=== PATIENT | male | born 1985 | race Caucasian/White ===

== ENCOUNTER 2020-01-07 04:50 | Observation (INO) | payer OTHER ==
[2020-01-07] MEDS ORDERED: ONDANSETRON 4 MG/2 ML VIAL ONE (05:29)
[2020-01-07] MEDS ORDERED: NA CHLORIDE 0.9% 1,000 ML ONE ×2 (05:29→06:17)
[2020-01-07] MEDS ORDERED: FAMOTIDINE 20 MG/2 ML VIAL IV ONE (05:29)
[2020-01-07] MEDS ORDERED: MORPHINE 4 MG/ML SYR ONE (05:30)
[2020-01-07 05:37] LABS: Absolute Lymphocytes (CBC) 2.4 K/uL (0.7-4.9); Basophils % 0.3 % (0-1.3); Hematocrit 59.1 % (39.6-49.0); Lymphocytes % 7.7 % (15.3-44.8); MPV 8.7 fL (7.6-11.3); RBC Red Blood Cell Count 6.63 M/uL (4.33-5.43)
[2020-01-07 06:01] LABS: Phosphorus 8.3 mg/dL (2.5-4.9)
[2020-01-07 06:25] LABS: ALT/SGPT 70 U/L (12-78); AST/SGOT 52 U/L (15-37); Alkaline Phosphatase 146 U/L (45-117); BUN Blood Urea Nitrogen 36 mg/dL (7-18); Bicarbonate 23 mmol/L (21-32); Bilirubin Direct 0.2 mg/dL (0-0.2); Bilirubin Total 0.7 mg/dL (0.2-1.0); Creatine Phosphokinase 634 U/L (39-308); Glucose Level 238 mg/dL (74-106); Lipase 75 U/L (73-393); Protein, Total 12.9 g/dL (6.4-8.2); Sodium Level 133 mmol/L (136-145); Troponin (Emerg Dept Use Only) < 0.02 ng/mL (0.0-0.045)
[2020-01-07 06:29] LABS: Albumin 6.9 g/dL (3.4-5.0)
[2020-01-07] MEDS ORDERED: PIPER/TAZO/NS 3.375gm 3.375 GM/100 ML BAG ONE (06:45)
[2020-01-07 07:42] LABS: Protime INR 1.13
[2020-01-07 08:39] LABS: Urine Blood 2+ (NEG); Urine Glucose NEGATIVE (NEG); Urine Protein 3+ (NEG); Urine Specific Gravity >1.030 (1.005-1.030); Urine pH 5.5 (5.0-7.0)
--- NOTE | 2020-01-07 08:44 | RAD REPORT ---
EXAM DESCRIPTION: CT - Abdomen Pelvis Wo Contrast - 01/07/2020 6:51 am CLINICAL HISTORY: Abdominal pain. ABD PAIN COMPARISON: No comparisons TECHNIQUE: CT imaging of the abdomen and pelvis was performed without contrast. Solid organ, bowel a nd vascular assessment is limited due to lack of IV and oral contrast. All CT scans are performed using dose optimization technique as appropriate and may include automated exposure control or mA/KV adjustment according to patient size. FINDINGS: The lower lung narayanan are clear. The liver, spleen, pancreas, adrenal glands and kidneys are within normal limits for a limited non-co ntrast examination. No bowel obstruction, free air, free fluid or abscess. The appendix is normal. The osseous structures are within normal limits. IMPRESSION: No acute intra-abdominal or pelvic findings. A limited non-contrast examination was performed as detailed.
[2020-01-07 08:48] LABS: Barbiturates NEGATIVE (NEGATIVE); Benzodiazepines NEGATIVE (NEGATIVE); Cocaine NEGATIVE (NEGATIVE); METHAMPHETAM NEGATIVE (NEGATIVE); Methadone NEGATIVE (NEGATIVE); Opiates POSITIVE (NEGATIVE); Phencyclidine NEGATIVE (NEGATIVE); THC Cannibis NEGATIVE (NEGATIVE)
--- NOTE | 2020-01-07 09:00 | EDPHYS ---
Physician Documentation [facility] Name: Artem Robertson Jr Age: 34 yrs Sex: Male : 1985 Arrival Date: 01/07/2020 Time: 04:51 Bed 8 Private MD: ED Physician Wallace Bullock HPI: 01/06 05:43 This 34 yrs old Male presents to ER via Wheelchair with complaints of mh7 Abdominal Cramping, Vomiting. 05:43 The patient presents with abdominal pain that is diffuse. Onset: The symptoms/episode mh7 began/occurred 2 day(s) ago. The symptoms do not radiate. Associated signs and symptoms: Pertinent positives: nausea and vomiting, anorexia, Pertinent negatives: blood in stools, chest pain, constipation, diarrhea, dysuria, fever, headache, hematuria, palpitations, shortness of breath, testicular pain, vomiting blood. The symptoms are described as intermittent, vague, waxing/waning. Modifying factors: The symptoms are alleviated by nothing, the symptoms are aggravated by nothing. Severity of pain: At its worst the pain was moderate last night, in the emergency department the pain is unchanged. Historical: - Allergies: 05:02 No Known Allergies; lp1 - Home Meds: 05:02 None [Active]; lp1 - PMHx: 05:02 None; lp1 - PSHx: 05:02 None; lp1 - Immunization history:: Adult Immunizations up to date. - Social history:: Smoking status: Patient reports the use of cigarette tobacco products, smokes one pack cigarettes per day. ROS: 05:43 Constitutional: Negative for fever, chills, and weight loss, Eyes: Negative for injury, mh7 pain, redness, and discharge, ENT: Negative for injury, pain, and discharge, Neck: Negative for injury, pain, and swelling, Cardiovascular: Negative for chest pain, palpitations, and edema, Respiratory: Negative for shortness of breath, cough, wheezing, and pleuritic chest pain, Back: Negative for injury and pain, : Negative for injury, bleeding, discharge, and swelling, MS/Extremity: Negative for injury and deformity, Skin: Negative for injury, rash, and discoloration, Neuro: Negative for headache, weakness, numbness, tingling, and seizure, Psych: Negative for depression, anxiety, suicide ideation, homicidal ideation, and hallucinations, Allergy/Immunology: Negative for hives, rash, and allergies, Endocrine: Negative for neck swelling, polydipsia, polyuria, polyphagia, and marked weight changes, Hematologic/Lymphatic: Negative for swollen nodes, abnormal bleeding, and unusual bruising. Exam: 05:43 Head/Face: Normocephalic, atraumatic. Eyes: Pupils equal round and reactive to light, mh7 extra-ocular motions intact. Lids and lashes normal. Conjunctiva and sclera are non-icteric and not injected. Cornea within normal limits. Periorbital areas with no swelling, redness, or edema. Neck: Trachea midline, no thyromegaly or masses palpated, and no cervical lymphadenopathy. Supple, full range of motion without nuchal rigidity, or vertebral point tenderness. No Meningismus. Chest/axilla: Normal chest wall appearance and motion. Nontender with no deformity. No lesions are appreciated. 05:43 Respiratory: Lungs have equal breath sounds bilaterally, clear to auscultation and percussion. No rales, rhonchi or wheezes noted. No increased work of breathing, no retractions or nasal flaring. 05:43 Back: No spinal tenderness. No costovertebral tenderness. Full range of motion. Skin: Warm, dry with normal turgor. Normal color with no rashes, no lesions, and no evidence of cellulitis. MS/ Extremity: Pulses equal, no cyanosis. Neurovascular intact. Full, normal range of motion. Neuro: Awake and alert, GCS 15, oriented to person, place, time, and situation. Cranial nerves II-XII grossly intact. Motor strength 5/5 in all extremities. Sensory grossly intact. Cerebellar exam normal. Normal gait. Psych: Awake, alert, with orientation to person, place and time. Behavior, mood, and affect are within normal limits. 05:43 Constitutional: The patient appears alert, awake, frail, uncomfortable. 05:43 Cardiovascular: Rate: tachycardic, Rhythm: regular, Pulses: no pulse deficits are appreciated, Heart sounds: normal, normal S1and S2, Edema: is not appreciated, JVD: is not appreciated. 05:43 Abdomen/GI: Inspection: abdomen appears normal, Bowel sounds: normal, in all quadrants, Palpation: moderate abdominal tenderness, in all quadrants, Rectal exam: the exam is deferred, because of patient request, Indicators: McBurney's point is not tender, Gamez's sign is negative, Rovsing's sign is negative, Obturator sign is negative, Psoas sign is negative, Liver: no appreciated palpable abnormalities, Hernia: not appreciated. Vital Signs: 05:00 BP 135 / 89; Pulse 137; Resp 20; Pulse Ox 97% on R/A; Weight 71.21 kg (R); Height 6 ft. lp1 1 in. (185.42 cm); 05:46 BP 126 / 70; Pulse 78; Resp 19; Temp 99.9(R); Pulse Ox 100% on R/A; Pain 2/10; jb4 06:00 BP 118 / 93; Pulse 88; Resp 20; Pulse Ox 95% on R/A; jb4 07:31 BP 120 / 86; Pulse 88; Resp 16; Pulse Ox 95% on R/A; em 08:38 BP 124 / 86; Pulse 86; Resp 16; Pulse Ox 97% on R/A; em 09:00 Temp 97.8(O); em 09:43 BP 120 / 83; Pulse 93; Resp 17; Pulse Ox 98% ; jl7 10:30 BP 120 / 82; Pulse 76; Resp 16; Pulse Ox 96% ; jl7 11:21 BP 122 / 89; Pulse 85; Resp 17; Pulse Ox 96% ; jl7 05:00 Body Mass Index 20.71 (71.21 kg, 185.42 cm) lp1 MDM: 05:16 Patient medically screened. 7 09:01 Data reviewed: vital signs, nurses notes, lab test result(s), radiologic studies. kdr Counseling: I had a detailed discussion with the patient and/or guardian regarding: the historical points, exam findings, and any diagnostic results supporting the discharge/admit diagnosis, lab results, radiology results, the need for further work-up and treatment in the hospital. Physician consultation: Nicolas Escalera DO. 01/06 05:18 Order name: Basic Metabolic Panel; Complete Time: 06:30 7 01/06 05:18 Order name: CBC with Diff; Complete Time: 10:45 7 01/06 05:18 Order name: Hepatic Function; Complete Time: 06:30 7 01/06 05:18 Order name: Lipase; Complete Time: 06:30 7 01/06 05:18 Order name: Troponin (emerg Dept Use Only); Complete Time: 06:30 7 01/06 05:18 Order name: CPK; Complete Time: 06:30 7 01/06 05:18 Order name: Lactate; Complete Time: 06:07 7 01/06 05:18 Order name: UDS; Complete Time: 08:56 7 01/06 05:19 Order name: Acetone, Serum; Complete Time: 06:02 7 01/06 05:19 Order name: Phosphorus; Complete Time: 06:02 7 01/06 05:21 Order name: Glucose, Ancillary Testing; Complete Time: 05:47 EDMS 01/06 06:22 Order name: Procalcitonin; Complete Time: 07:21 7 01/06 06:25 Order name: PT-INR; Complete Time: 07:47 7 01/06 06:36 Order name: Blood Culture Adult (2) 7 01/06 05:18 Order name: IV Saline Lock; Complete Time: 05:40 7 01/06 06:32 Order name: Abdomen ; Complete Time: 08:46 EDMS 01/06 08:19 Order name: EKG Electrocardiogram EDMS 01/06 08:28 Order name: Urine Dipstick--Ancillary (enter results); Complete Time: 08:46 em1 01/06 09:06 Order name: Lactate Sepsis 2 HR Follow-up; Complete Time: 10:45 EDMS 01/06 09:16 Order name: Manual Differential; Complete Time: 10:45 EDMS 01/06 11:40 Order name: ABG Arterial Blood Gas EDMS 01/06 11:43 Order name: RAD EDMS 01/06 05:18 Order name: Labs collected and sent; Complete Time: 05:40 7 01/06 05:18 Order name: Urine Dipstick-Ancillary (obtain specimen); Complete Time: 08:27 7 01/06 05:18 Order name: EKG - Nurse/Tech; Complete Time: 05:40 mh7 Administered Medications: 05:24 Drug: Zofran (Ondansetron) 4 mg Route: IVP; Site: right antecubital; rr5 05:50 Follow up: Response: No adverse reaction; Nausea is decreased jb4 05:25 Drug: NS 0.9% 1000 ml Route: IV; Rate: 1000 ml; Site: right antecubital; rr5 06:10 Follow up: Response: No adverse reaction; IV Status: Completed infusion; IV Intake: jb4 1000ml 05:26 Drug: Pepcid 20 mg Route: IVP; Site: right antecubital; rr5 05:50 Follow up: Response: No adverse reaction jb4 05:28 Drug: morphine 4 mg {Note: rass 0.} Route: IVP; Site: right antecubital; rr5 05:50 Follow up: Response: No adverse reaction; Pain is decreased; RASS: Alert and Calm (0) jb4 06:13 Drug: NS 0.9% 1000 ml Route: IV; Rate: 1000 ml; Site: right antecubital; jb4 07:32 Follow up: IV Status: Completed infusion; IV Intake: 1000ml em 06:50 Drug: Zosyn 3.375 grams Route: IVPB; Infused Over: 60 mins; Site: right antecubital; jb4 08:00 Follow up: Response: No adverse reaction; IV Status: Completed infusion jl7 09:04 Drug: NS 0.9% 1000 ml Route: IV; Rate: 200 ml/hr; Site: right antecubital; em 11:53 Follow up: Response: No adverse reaction; IV Status: Infusion continued upon admission jl7 Disposition: 01/07/20 08:59 Hospitalization ordered by Nicolas Escalera for Observation. Preliminary diagnosis are Dehydration, Acute Renal Failure, Abdominal and pelvic pain, Rhabdomyolysis. - Bed requested for Telemetry/MedSurg (observation). - Status is Observation. jl7 - Condition is Fair. - Problem is new. - Symptoms have improved. Signatures: Dispatcher [employer] EDIN Wallace Bullock MD MD kdr Munoz, Edgar RN RN Rober Bowers em1 Paloma Burks RN RN lp1 Felton Sifuentes RN RN jb4 Della Roper RN RN jl7 Roger Crews RN RN rr5 Patrick Hirsch MD MD mh7 Corrections: (The following items were deleted from the chart) 06:32 05:48 Abdomen Pelvis W Con+CT.RAD.BRZ ordered. EDIN EDMS 10:51 08:59 Hospitalization Ordered by Nicolas Escalera DO for Observation. Preliminary em1 diagnosis is Dehydration; Acute Renal Failure; Abdominal and pelvic pain; Rhabdomyolysis. Bed requested for Telemetry/MedSurg (observation). Status is Observation. Condition is Fair. Problem is new. Symptoms have improved. kdr 11:53 10:51 01/07/2020 08:59 Hospitalization Ordered by Nicolas Escalera DO for Observation. jl7 Preliminary diagnosis is Dehydration; Acute Renal Failure; Abdominal and pelvic pain; Rhabdomyolysis. Bed requested for Telemetry/MedSurg (observation). Status is Observation. Condition is Fair. Problem is new. Symptoms have improved. em1
--- NOTE | 2020-01-07 09:00 | ER ---
Nurse's Notes [facility] Name: Artem Robertson Jr Age: 34 yrs Sex: Male : 1985 Arrival Date: 01/07/2020 Time: 04:51 Bed 8 Private MD: Diagnosis: Dehydration;Acute Renal Failure;Abdominal and pelvic pain;Rhabdomyolysis Presentation: 01/06 05:00 Chief complaint: Patient states: "I think I have heat exhaustion": patient states lp1 muscle cramping and vomiting that began yesterday; states feeling thirsty but cannot tolerate food or fluids. Coronavirus screen: Patient denies a cough. Patient denies shortness of breath or difficulty breathing. Patient denies measured and/or subjective temperature greater than 100.4F prior to today's visit. Patient denies travel on a cruise ship or to a country the [facility] currently lists as an affected area. Patient denies contact with known and/or suspected case of COVID-19. Ebola Screen: No symptoms or risks identified at this time. Initial Sepsis Screen: Does the patient meet any 2 criteria? No. Patient's initial sepsis screen is negative. Does the patient have a suspected source of infection? No. Patient's initial sepsis screen is negative. Risk Assessment: Do you want to hurt yourself or someone else? Patient reports no desire to harm self or others. Onset of symptoms was January 06, 2020. 05:00 Method Of Arrival: Wheelchair lp1 05:00 Acuity: RED 3 lp1 Historical: - Allergies: 05:02 No Known Allergies; lp1 - Home Meds: 05:02 None [Active]; lp1 - PMHx: 05:02 None; lp1 - PSHx: 05:02 None; lp1 - Immunization history:: Adult Immunizations up to date. - Social history:: Smoking status: Patient reports the use of cigarette tobacco products, smokes one pack cigarettes per day. Screenin:03 Abuse screen: Denies threats or abuse. Denies injuries from another. Nutritional lp1 screening: No deficits noted. Tuberculosis screening: No symptoms or risk factors identified. 09:43 Fall Risk IV access (20 points). Total Dumont Fall Scale indicates No Risk (0-24 pts). jl7 Assessment: 05:00 General: Appears in no apparent distress. uncomfortable, Behavior is calm, cooperative, jb4 appropriate for age. Pain: Complains of pain in abdomen Pain does not radiate. Pain currently is 10 out of 10 on a pain scale. Quality of pain is described as crampy, Pain began 1 day ago. Is continuous. Neuro: Level of Consciousness is awake, alert, obeys commands, Oriented to person, place, time, situation. Cardiovascular: Patient's skin is warm and dry. Respiratory: Airway is patent Respiratory effort is even, unlabored, Respiratory pattern is regular, symmetrical. GI: Abdomen is flat, Bowel sounds present X 4 quads. Abd is rigid X 4 quads. Reports lower abdominal pain, upper abdominal pain, diarrhea, nausea, vomiting. : No signs and/or symptoms were reported regarding the genitourinary system. EENT: No signs and/or symptoms were reported regarding the EENT system. Derm: Skin is intact, Skin is diaphoretic, Skin is pale, Skin temperature is cool. Musculoskeletal: Circulation, motion, and sensation intact. Range of motion: intact in all extremities. 05:46 Reassessment: Patient appears in no apparent distress at this time. Patient and/or jb4 family updated on plan of care and expected duration. Pain level reassessed. Patient is alert, oriented x 3, equal unlabored respirations, skin warm/dry/pink. PT reports has decreased to 2/10. 06:05 Reassessment: lactate of 7.3 omi from laboratory called, ED provider aware. rr5 06:26 Reassessment: Patient appears in no apparent distress at this time. Patient and/or jb4 family updated on plan of care and expected duration. Pain level reassessed. Patient is alert, oriented x 3, equal unlabored respirations, skin warm/dry/pink. 06:29 Reassessment: chloride 79 calcium 12.1 albumin 6.9 ethan from laboratory called. ED rr5 provider aware. 07:25 Reassessment: Patient appears in no apparent distress at this time. Patient and/or em family updated on plan of care and expected duration. Pain level reassessed. Patient is alert, oriented x 3, equal unlabored respirations, skin warm/dry/pink. sent add on coag's to lab. 08:00 Reassessment: Pt reports unable to void at this time, will attempt again after some jl7 time. 08:25 Reassessment: obtained UA, tea colored urine, voided 150 mL. em 08:30 Reassessment: repeat lactate sent to lab. em 09:30 Reassessment: Dr. Escalera at bedside. 7 Vital Signs: 05:00 BP 135 / 89; Pulse 137; Resp 20; Pulse Ox 97% on R/A; Weight 71.21 kg (R); Height 6 ft. lp1 1 in. (185.42 cm); 05:46 BP 126 / 70; Pulse 78; Resp 19; Temp 99.9(R); Pulse Ox 100% on R/A; Pain 2/10; jb4 06:00 BP 118 / 93; Pulse 88; Resp 20; Pulse Ox 95% on R/A; jb4 07:31 BP 120 / 86; Pulse 88; Resp 16; Pulse Ox 95% on R/A; em 08:38 BP 124 / 86; Pulse 86; Resp 16; Pulse Ox 97% on R/A; em 09:00 Temp 97.8(O); em 09:43 BP 120 / 83; Pulse 93; Resp 17; Pulse Ox 98% ; jl7 10:30 BP 120 / 82; Pulse 76; Resp 16; Pulse Ox 96% ; jl7 11:21 BP 122 / 89; Pulse 85; Resp 17; Pulse Ox 96% ; jl7 05:00 Body Mass Index 20.71 (71.21 kg, 185.42 cm) lp1 ED Course: 04:51 Patient arrived in ED. ds1 04:54 Felton Sifuentes RN is Primary Nurse. jb4 04:56 Patrick Hirsch MD is Attending Physician. 7 05:00 Initial lab(s) drawn, by or, sent to lab. Inserted saline lock: 18 gauge in right jb4 antecubital area, using aseptic technique. Blood collected. 05:02 Triage completed. lp1 05:02 Arm band placed on. lp1 05:46 Patient has correct armband on for positive identification. Placed in gown. Bed in low jb4 position. Call light in reach. Side rails up X 1. media monitor on. Pulse ox on. NIBP on. 06:16 Notified ED physician of a critical lab result(s). WBC 31.7. lp1 06:51 Abdomen In Process Unspecified. EDMS 07:06 Primary Nurse role handed off by Felton Sifuentes, RN rr5 07:06 Roger Crews, RN is Primary Nurse. rr5 07:09 Felton Sifuentes, RN is Primary Nurse. jb4 07:20 Attending Physician role handed off by Patrick Hirsch MD kdr 07:20 Wallace Bullock MD is Attending Physician. kdr 07:30 Balbir Coats, RN is Primary Nurse. em 08:57 Nicolas Escalera DO is Hospitalizing Provider. kdr 11:50 No provider procedures requiring assistance completed. jl7 11:53 Patient admitted, IV remains in place. intact, No redness/swelling at site. jl7 Administered Medications: 05:24 Drug: Zofran (Ondansetron) 4 mg Route: IVP; Site: right antecubital; rr5 05:50 Follow up: Response: No adverse reaction; Nausea is decreased jb4 05:25 Drug: NS 0.9% 1000 ml Route: IV; Rate: 1000 ml; Site: right antecubital; rr5 06:10 Follow up: Response: No adverse reaction; IV Status: Completed infusion; IV Intake: jb4 1000ml 05:26 Drug: Pepcid 20 mg Route: IVP; Site: right antecubital; rr5 05:50 Follow up: Response: No adverse reaction jb4 05:28 Drug: morphine 4 mg {Note: rass 0.} Route: IVP; Site: right antecubital; rr5 05:50 Follow up: Response: No adverse reaction; Pain is decreased; RASS: Alert and Calm (0) jb4 06:13 Drug: NS 0.9% 1000 ml Route: IV; Rate: 1000 ml; Site: right antecubital; jb4 07:32 Follow up: IV Status: Completed infusion; IV Intake: 1000ml em 06:50 Drug: Zosyn 3.375 grams Route: IVPB; Infused Over: 60 mins; Site: right antecubital; jb4 08:00 Follow up: Response: No adverse reaction; IV Status: Completed infusion jl7 09:04 Drug: NS 0.9% 1000 ml Route: IV; Rate: 200 ml/hr; Site: right antecubital; em 11:53 Follow up: Response: No adverse reaction; IV Status: Infusion continued upon admission jl7 Intake: 06:10 IV: 1000ml; Total: 1000ml. jb4 07:32 IV: 1000ml; Total: 2000ml. em Outcome: 08:59 Decision to Hospitalize by Provider. kdr 11:50 Admitted to Tele accompanied by tech, via stretcher, room 228, with chart, Report jl7 called to VAN Sue 11:50 Condition: stable 11:50 Discharge instructions given to patient, Instructed on the need for admit, Demonstrated understanding of instructions. 11:53 Patient left the ED. jl7 Signatures: Dispatcher [employer] EDWallace Jefferson MD MD kdr Balbir Coats, RN RN em Angela Cooley ds1 Paloma Burks RN RN lp1 Felton Sifuentes, RN RN jb4 Della Roper RN RN jl7 Roger Crews, RN RN rr5 Patrick Hirsch MD MD 7
[2020-01-07] MEDS ORDERED: NA CHLORIDE 0.9% 2,000 ML ONE (09:08)
[2020-01-07 09:16] LABS: Blood Morphology Comment NOT SEEN (NOT SEEN); Platelet Estimate ADEQ
[2020-01-07] MEDS ORDERED: NA CHLORIDE 0.9% 1,000 ML IV ONE (11:16)
[2020-01-07 11:37] LABS: Arterial Blood Carboxyhemoglob 1.4 % (0-1.5); Blood Gas Oxyhemoglobin 91.4 % (94-97); Blood O2 Saturation 93.5 % (92-98.5)
--- NOTE | 2020-01-07 11:42 | RAD REPORT ---
EXAM DESCRIPTION: RAD - Chest Single View - 01/07/2020 11:35 am CLINICAL HISTORY: COPD Chest pain. COMPARISON: No comparisons FINDINGS: Portable technique limits examination quality. The lungs are grossly clear. The heart is normal in size. No displaced fractures. IMPRESSION: No acute intrathoracic process suspected.
[2020-01-07] MEDS ORDERED: NA CHLORIDE 0.9% 1,000 ML IV SCH ×3 (12:00→12:15)
[2020-01-07] MEDS ORDERED: ONDANSETRON 4 MG/2 ML VIAL IV PRN (12:15)
[2020-01-07] MEDS ORDERED: ALBUTEROL INHALER 60 PUFF/8 GM IH PRN (12:15)
[2020-01-07] MEDS ORDERED: ACETAMINOPHEN 500 MG TAB PO PRN (12:15)
[2020-01-07] MEDS ORDERED: TRAMADOL 37.5mg/APAP 325mg PER TAB PO PRN (12:15)
[2020-01-07] MEDS ORDERED: HYDROCODONE/APAP 7.5/325 MG TAB PO PRN (12:15)
[2020-01-07] MEDS ORDERED: ALBUTEROL 2.5 MG/3 ML NEB SOL NEB PRN (12:34)
[2020-01-07 12:48] VITALS: BMI 20.7
[2020-01-07] MEDS: NICOTINE 21 MG/PAT TD SCH (12:57)
[2020-01-07] MEDS: NACHLORIDE 0.45% 1,000 ML with NA BICARB 8.4% 75 MEQ IV SCH ×2 (17:17)
--- NOTE | 2020-01-07 17:33 | P.HP ---
Certification for Inpatient Patient admitted to: Inpatient With expected LOS: >2 Midnights Patient will require the following post-hospital care: None Practitioner: I am a practitioner with admitting privileges, knowledge of patient current condition, hospital course, and medical plan of care. Services: Services provided to patient in accordance with Admission requirements found in Title 42 Section 412.3 of the Code of Federal Regulations Patient History Date of Service: 01/07/20 Primary Care Provider: none Reason for admission: Fatigue, poor output History of Present Illness: 34-year-old male presented to emergency room with abdominal cramping and fatigue. Over the last 2 days patient had been working outside in the heat. 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 He reported some chills Overnite. He reports poor urinary output since Sunday. He did report some nausea and dry heaves. He thought he has been drinking plenty of fluids during this time. In the ER patient was evaluated. Abnormal lab noted including white count 31.7. Hemoglobin 20. Platelet count 449. 4 bands noted. Sodium 133, potassium 4.0. BUN of 36, creatinine 4.98 with a GFR of 13. Pro calcitonin negative. Lactic acid was initially 7.3 but after fluid bolus 1.6. Calcium 12.1. AST 50 tube. ALT 70. Alk-phos 146. CPK 634. Troponin unremarkable. Patient given IV fluid bolus in the emergency room. Patient admitted for further evaluation. When I saw the patient in the ER, patient appeared severely dehydrated. Pain to the calves noted. Some contraction noted. Allergies No Known Allergies Allergy (Unverified 01/07/20 11:19) Home medications list reviewed: Yes Home Medications: NK [No Home Meds] 01/07/20 - Past Medical/Surgical History Has patient received pneumonia vaccine in the past: No Diabetic: Yes Past Medical History: Patient denies medical history -: Tobacco use -: Alcohol use Past Surgical History: Patient denies surgical history Psychosocial/ Personal History: Patient is originally from [place]. 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 - Family History Mother -: Cancer (Uterine cancer) - Social History Smoking Status: Current every day smoker Alcohol use: Yes CD- Drugs: No Caffeine use: No Place of Residence: Home Review of Systems General: Chills, Weakness, As per HPI Eyes: Unremarkable ENT: Unremarkable Respiratory: Unremarkable Cardiovascular: Unremarkable Gastrointestinal: Nausea, Unremarkable Genitourinary: As per HPI Musculoskeletal: Unremarkable Integumentary: Unremarkable Neurological: Unremarkable Lymphatics: Unremarkable Physical Examination - Vital Signs Temperature: 100.7 F Blood Pressure: 112/74 Pulse: 91 Respirations: 20 Pulse Ox (%): 94 - Physical Exam General: Alert, In no apparent distress, Oriented x3, Cooperative, Cachectic, Other (Patient appears severely dehydrated.) HEENT: Atraumatic, Mucous membr. moist/pink Neck: Supple Respiratory: Clear to auscultation bilaterally, Normal air movement Cardiovascular: Normal pulses, Regular rate/rhythm Gastrointestinal: Normal bowel sounds, Soft and benign, Non-distended, No tenderness, No masses, No rebound, No guarding Musculoskeletal: No warmth Integumentary: Other (Muscles feel tense throughout. Pain with palpation to the calves) Neurological: Normal speech, Normal strength at 5/5 x4 extr, Normal tone, Normal affect Other Physical/Emotional Findings: Dry skin turgor noted - Studies Laboratory Data (last 24 hrs) 01/07/20 07:25: PT 13.3 H, INR 1.13 01/07/20 05:20: Phosphorus 8.3 H 01/07/20 05:20: WBC 31.7 H*, Hgb 20.0 H, Hct 59.1 H, Plt Count 449 H 01/07/20 05:20: Sodium 133 L, Potassium 4.0, BUN 36 H, Creatinine 4.98 H, Gluc ose 238 H, Total Bilirubin 0.7, AST 52 H, ALT 70, Alkaline Phosphatase 146 H, Lipase 75 Microbiology Data (last 24 hrs): 01/07/20 05:26 Blood - Blood Anaerobic Blood Culture - Final Assessment and Plan - Plan Impression: Acute rhabdomyolysis likely from severe dehydration with noted acute renal failure Hypercalcemia Leukocytosis with polycythemia Tobacco use Alcohol use Plan: Patient appears severely dehydrated. Patient given IV fluid bolus in the emergency room. Patient does not appear septic. Continue aggressive IV fluid hydration. Will provide medication for pain. Will continue to monitor CPK, renal function. Nephrology consulted to further evaluate. Anticipate improvement with fluid hydration. If symptoms worsen patient may require hemodialysis. Will continue monitor closely. Patient also with underlying tobacco and alcohol use. Will provide cessation education. Continue to monitor closely. Anticipate improvement over the next 72 hr. Discharge Plan: Home Plan to discharge in: 72 Hours - Advance Directives Does patient have a Living Will: No Does patient have a Durable POA for Healthcare: No - Code Status/Comfort Care Code Status Assessed: Yes (Patient is full code) Time Spent Managing Pts Care (In Minutes): 55
[2020-01-07 18:03] LABS: Rheumatoid Factor NEG (NEG)
[2020-01-07 20:23] LABS: Urine Appearance CLEAR; Urine Bilirubin NEGATIVE (NEG); Urine Blood 2+ (NEG); Urine Color YELLOW; Urine Glucose NEGATIVE (NEG); Urine Microscopic Reflex ORDER UMIC; Urine Protein 1+ (NEG); Urine Specific Gravity 1.025 (1.005-1.030); Urine Urobilinogen 0.2 mg/dL (0.2-1.0); Urine pH 5.5 (5.0-7.0)
--- NOTE | 2020-01-07 20:28 | RAD REPORT ---
EXAM DESCRIPTION: US - Renal Ultrasound-Complete - 01/07/2020 8:18 pm CLINICAL HISTORY: Acute renal failure, acute rhabdomyolysis COMPARISON: Abdomen Pelvis Wo Contrast dated 01/07/2020 FINDINGS: The right kidney measures 10.4 x 4.1 x 4.6 cm. The left kidney measures 11.2 x 5.0 x 4.6 cm. Renal cortical thickness and echogenicity are normal. No hydronephrosis or suspicious renal mass. No bladder wall thickening or mass. No intraluminal stone or mass. IMPRESSION: No hydronephrosis or suspicious renal mass. No other significant findings.
[2020-01-07 20:34] LABS: Urine Bacteria <20 /HPF (NONE SEEN); Urine Crystals Unidentified FEW (NONE SEEN); Urine Culture Reflex Order NOT NEEDED; Urine Mucus SLIGHT /HPF (NONE SEEN); Urine RBC NONE SEEN /HPF (NONE SEEN)
[2020-01-07] MEDS: DULERA 100/5 (MOMETASONE/FORMOTEROL) INHALER IH SCH (20:48)
[2020-01-07] MEDS: HEPARIN 5000 UNIT/ML 1 ML VIAL SQ SCH (20:50)
--- NOTE | 2020-01-07 20:59 | EKG ---
Test Date: 2020-01-07 Test Time: 05:30:06 Learning Manager: TLT MEASUREMENT RESULTS: Intervals: Rate: 98 MO: 118 QRSD: 94 QT: 406 QTc: 518 [place]: P: MO: 118 QRS: 101 T: 70 INTERPRETIVE STATEMENTS: Normal sinus rhythm Rightward axis Pulmonary disease pattern Prolonged QT Abnormal ECG No previous ECG available for comparison Electronically Signed On 01-07-20 20:57:00 CDT by Oleg Duffy
--- NOTE | 2020-01-07 21:52 | CON ---
Date of Consultation: 01/07/2020 Reason For Consultation: Elevated BUN and creatinine, rhabdomyolysis, fluid management. History Of Present Illness: This is a 34-year-old gentleman without any significant past medical his tory, came to the hospital complaining of weakness and fatigue, found to have elevated BUN and creati nine. For that reason, we have been consulted. The patient denied exposure for any contrast. No re cent change in his medication. Patient denied taking any xkgw-mrh-zxoldok medication. Primary ebonie p showed the patient had severe leukocytosis, 31 WBC, and patient had creatinine of 4 with GFR of 13. Patient had severe hypercalcemia. Past Medical History: Negative. Allergies: NO KNOWN DRUG ALLERGIES. Home Medications: None. Social History: Denied drug abuse, active smoker. Denied alcohol. Review of Systems: Head and Neck: No red eye. Had headache. GI: Has nausea. No vomiting. : Had anuria for the last 2 days. SCOW CAPTAIN: Not applicable. Respiratory: No shortness of breath. Cardiovascular: No chest pain. Endocrine: No polydipsia. Neuro: Has muscle cramps. Musculoskeletal: Has muscular cramps and generalized body ache. Physical Examination: GENERAL: When I saw the patient, patient was lying in bed, has a twitching movement in his mouth. VITAL SIGNS: Blood pressure 116/71, pulse of 82, T-max of 100.2. Chest: Clear to auscultation. Heart: S1-S2 regular. Abdomen: Soft, nontender. EXTREMITIES: No edema, but tender to touch. Neurologic: Alert, oriented, no focality. Again, patient has a twitching movement on his jaw. Pupi ls reactive, equal. Laboratory Data: Sodium 133, potassium 4, bicarb 23, BUN 36, creatinine 4.9, GFR of 13, blood sugar 238, calcium 12.1, phosphorus 8.3. Lactic acid 7.3. LFTs within normal limit. CK 634, albumin 6.9. ABG, pH of 7.4, CO2 34, O2 76, base access -6, saturation 91. Urinalysis +2 blood, +[address] silvestre screen positive for opiates. Assessment: Chest x-ray, no cardiomegaly. CT abdomen and pelvis was done without any contrast, obst ructive uropathy was ruled out. Assessment And Plan: 1.Acute kidney injury on chronic kidney disease. Oliguric component mostly secondary to prerenal, s econdary to rhabdomyolysis superimposed with severe dehydration supported with alkalosis and severe h ypercalcemia. 2.I am going to go ahead and aggressively hydrate the patient. We will bolus the patient with anoth er liter and maintain him on 150 of normal saline and we will follow up the patient. I am going to s end for full serology for the patient. We will send for renal ultrasound to evaluate the chronicity of the disease with PTH. 3.Hypercalcemia mostly secondary to dehydration. I am going to send for vitamin D and PTH to evalua te if there is any vitamin D toxicity. 4.We will start the patient on aggressive hydration and we will follow up the patient. I do not see the need for alendronate or Lasix for the time being or Sensipar. 5.Leukocytosis possible secondary to severe dehydration. We will follow up. 6.Hyponatremia, depletional, I will start the patient on hydration. 7.Acidosis with compensation for contraction alkalosis with acidosis secondary to renal failure, pre renal. Start the patient on aggressive hydration. We do not need any bicarb drip for the time being . 8.Rhabdomyolysis. I agree with current strategy. Given the acute kidney injury, I am going to start the patient with bicarb drip to establish alkalization for the uri ne. AJAY/JERONIMO Voice ID: [id number] Report ID: [id number]
[2020-01-08] MEDS: NACHLORIDE 0.45% 1,000 ML with NA BICARB 8.4% 75 MEQ IV SCH ×4 (01:09→08:14)
[2020-01-08 04:37] LABS: Absolute Lymphocytes (CBC) 2.5 K/uL (0.7-4.9); Basophils % 0.3 % (0-1.3); Hematocrit 39.9 % (39.6-49.0); Lymphocytes % 21.3 % (15.3-44.8); MPV 8.3 fL (7.6-11.3); RBC Red Blood Cell Count 4.44 M/uL (4.33-5.43)
[2020-01-08 05:12] LABS: Albumin 3.7 g/dL (3.4-5.0); Bilirubin Total 0.4 mg/dL (0.2-1.0); Magnesium 2.5 mg/dL (1.8-2.4); Phosphorus 2.4 mg/dL (2.5-4.9); Potassium 4.2 mmol/L (3.5-5.1); Protein, Total 7.1 g/dL (6.4-8.2); Thyroid Stimulating Hormone 0.355 uIU/mL (0.360-3.740); Uric Acid 4.6 mg/dL (3.5-7.2)
[2020-01-08 08:10] VITALS: BP 111/71; TEMP 98.2
[2020-01-08] MEDS: NICOTINE 21 MG/PAT TD SCH (08:12)
[2020-01-08] MEDS: HEPARIN 5000 UNIT/ML 1 ML VIAL SQ SCH (08:13)
[2020-01-08] MEDS: DULERA 100/5 (MOMETASONE/FORMOTEROL) INHALER IH SCH (08:14)
[2020-01-08 08:35] VITALS: O2SAT 95
--- NOTE | 2020-01-08 13:50 | P.DS ---
Admission Date: 01/07/20 Discharge Date: 01/08/20 Primary Care Provider: none Disposition: [place] HOME/HOME HEALTH CARE Discharge Condition: GOOD Reason for Admission: Fatigue, poor output Consultations: Nephrology-Dr Camacho Procedures: CT scan: FINDINGS: The lower lung narayanan are clear. The liver, spleen, pancreas, adrenal glands and kidneys are within normal limits for a limited non-contrast examination. No bowel obstruction, free air, free fluid or abscess. The appendix is normal. The osseous structures are within normal limits. IMPRESSION: No acute intra-abdominal or pelvic findings. A limited non-contrast examination was performed as detailed. Renal US: COMPARISON: Abdomen Pelvis Wo Contrast dated 01/07/2020 FINDINGS: The right kidney measures 10.4 x 4.1 x 4.6 cm. The left kidney measures 11.2 x 5.0 x 4.6 cm. Renal cortical thickness and echogenicity are normal. No hydronephrosis or suspicious renal mass. No bladder wall thickening or mass. No intraluminal stone or mass. IMPRESSION: No hydronephrosis or suspicious renal mass. No other significant findings. Medical problem list: Acute nontraumatic rhabdomyolysis likely from severe dehydration with noted acute renal failure Hypercalcemia Leukocytosis with polycythemia Tobacco use Alcohol use Brief History of Present Illness: 34-year-old male presented to emergency room with abdominal cramping and fatigue. Over the last 2 days patient had been working outside in the heat. 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 He reported some chills Overnite. He reports poor urinary output since Sunday. He did report some nausea and dry heaves. He thought he has been drinking plenty of fluids during this time. In the ER patient was evaluated. Abnormal lab noted including white count 31.7. Hemoglobin 20. Platelet count 449. 4 bands noted. Sodium 133, potassium 4.0. BUN of 36, creatinine 4.98 with a GFR of 13. Pro calcitonin negative. Lactic acid was initially 7.3 but after fluid bolus 1.6. Calcium 12.1. AST 50 tube. ALT 70. Alk-phos 146. CPK 634. Troponin unremarkable. Patient given IV fluid bolus in the emergency room. Patient admitted for further evaluation. When I saw the patient in the ER, patient appeared severely dehydrated. Pain to the calves noted. Some contraction noted. Hospital Course: Patient presented with acute rhabdomyolysis, acute renal failure related to severe dehydration, and polycythemia. He was given IV fluids with improvement. Patients lab back to baseline. He is ambulating and doing well. No significant pain noted. Recommend follow up with PCP to recheck lab-CMP, CBC in one week. Re commend follow up with Nephrology in 2-4 weeks to follow up. Education on rhabdomyolysis, renal failure and polythemia will be provided. Recommend to increase hydration when working. No work until he is cleared by his PCP. Patient will need to follow up on lab-hepatitis panel, HIV, and autoimmune workup with PCP and Nephrology. Patient with Tobacco abuse. Cessation education given. Will provide Nicotine patch. Consider Pulmonary evaluation in the future for possible COPD. Vital Signs/Physical Exam: Temp Pulse Resp BP Pulse Ox 98.2 F 65 16 111/71 98 01/08/20 08:00 01/08/20 08:00 01/08/20 08:00 01/08/20 08:00 01/08/20 08:00 General: Alert, In no apparent distress, Oriented x3, Cooperative HEENT: Atraumatic Neck: Supple Respiratory: Clear to auscultation bilaterally, Normal air movement Cardiovascular: Normal pulses, Regular rate/rhythm Gastrointestinal: Normal bowel sounds, Soft and benign, Non-distended Musculoskeletal: No erythema, No tenderness, No warmth Integumentary: No erythema, No warmth, No cyanosis Neurological: Normal speech, Normal strength at 5/5 x4 extr, Normal tone, Normal affect Other Physical/Emotional Findings: Dry skin turgor noted Laboratory Data at Discharge: WBC 11.7 K/uL (4.3-10.9) H D 01/08/20 04:17 Hgb 13.5 g/dL (13.6-17.9) L D 01/08/20 04:17 Hct 39.9 % (39.6-49.0) D 01/08/20 04:17 Plt Count 220 K/uL (152-406) D 01/08/20 04:17 PT 13.3 SECONDS (9.5-12.5) H 01/07/20 07:25 INR 1.13 01/07/20 07:25 Sodium 136 mmol/L (136-145) 01/08/20 04:17 Potassium 4.2 mmol/L (3.5-5.1) 01/08/20 04:17 BUN 27 mg/dL (7-18) H 01/08/20 04:17 Creatinine 1.18 mg/dL (0.55-1.3) D 01/08/20 04:17 Glucose 101 mg/dL (74-106) 01/08/20 04:17 Uric Acid 4.6 mg/dL (3.5-7.2) 01/08/20 04:17 Phosphorus 2.4 mg/dL (2.5-4.9) L D 01/08/20 04:17 Magnesium 2.5 mg/dL (1.8-2.4) H 01/08/20 04:17 Total Bilirubin 0.4 mg/dL (0.2-1.0) 01/08/20 04:17 AST 67 U/L (15-37) H 01/08/20 04:17 ALT 48 U/L (12-78) 01/08/20 04:17 Alkaline Phosphatase 69 U/L (45-117) D 01/08/20 04:17 Lipase 75 U/L (73-393) 01/07/20 05:20 Home Medications: Nicotine [Nicoderm*] 21 mg TD DAILY #30 patch.td24 01/08/20 New Medications: Nicotine [Nicoderm*] 21 mg TD DAILY #30 patch.td24 Patient Discharge Instructions: 1. Recommend to establish care with a PCP to follow up this hospitalization and clear him for work. 2. Patient presented with acute rhabdomyolysis, acute renal failure related to severe dehydration, and polycythemia. He was given IV fluids with improvement. Patients lab back to baseline. He is ambulating and doing well. No significant pain noted. Recommend follow up with PCP to recheck lab-CMP, CBC in one week. Recommend follow up with Nephrology in 2-4 weeks to follow up. Education on rhabdomyolysis, renal failure and polythemia will be provided. Recommend to increase hydration when working. No work until he is cleared by his PCP. Patient will need to follow up on lab-hepatitis panel, HIV, and autoimmune workup with PCP and Nephrology. 3. Patient with Tobacco abuse. Cessation education given. Will provide Nicotine patch. Consider Pulmonary evaluation in the future for possible COPD. Diet: Regular Activity: Ad nadine Followup: Elizabeth Camacho MD [ACTIVE - CAN ADMIT] - Junior Cantrell MD [ACTIVE - CAN ADMIT] - Time spent managing pt's care (in minutes): 55
[2020-01-08 18:47] LABS: Rheumatoid Factor NEG (NEG)
[2020-01-12 08:47] LABS: HIV AG/AB 4TH GEN Non-reactive (Non-reactive)
[2020-01-14 04:12] LABS: HBsAG Nonreactive (Nonreactive)
[2020-01-14 15:55] LABS: HIV AG/AB 4TH GEN Non-reactive (Non-reactive)
[2020-01-15 00:01] LABS: Vitamin D 1,25-Dihydroxy Total 36 pg/mL (18-72); Vitamin D,1,25-OH2, D2 <8 pg/mL
[2020-01-15 20:35] LABS: Albumin, (SPE) 3.8 g/dL (3.8-4.8); Alpha-1-Globulins 0.4 g/dL (0.2-0.3); Alpha-2-Globulins 0.9 g/dL (0.5-0.9); Gamma Globulins 0.7 g/dL (0.8-1.7); INTERPRETATION REPORT
[2020-01-16 05:03] LABS: Hepatitis C Virus RNA (PCR)log <1.18 log IU/mL
== END 2020-01-08 09:42 | disposition home or self-care (01) ==
LOC: ER 04:50 → ERHOLD 10:36 → INTOOBSV 10:36 → 2ND 11:48
PROVIDERS: ADMIT Family Medicine; ATTEND Family Medicine
DX: M62.82 Rhabdomyolysis (principal); E86.0 Dehydration; N17.9 Acute kidney failure, unspecified; N18.9 Chronic kidney disease, unspecified; R34 Anuria and oliguria; E87.3 Alkalosis; E87.1 Hypo-osmolality and hyponatremia; N25.89 Other disorders resulting from impaired renal tubular function; E83.52 Hypercalcemia; D72.823 Leukemoid reaction; D72.829 Elevated white blood cell count, unspecified; D75.1 Secondary polycythemia; Z72.89 Other problems related to lifestyle; E11.9 Type 2 diabetes mellitus without complications; F17.210 Nicotine dependence, cigarettes, uncomplicated; Z11.59 Encounter for screening for other viral diseases; R10.9 Unspecified abdominal pain; R10.2 Pelvic and perineal pain; R94.31 Abnormal electrocardiogram [ECG] [EKG]
CPT/HCPCS: 96365; 96361; 93005 ×3; 87040 ×2; 85025 ×2; 80048; 36415 ×2; 82010; 83735; 82550 ×2; 86430 ×2; 84100; 85610; 82947; 80076; 84550; 80307 ×8; 83605 ×3; 83520; 82652; 80069; 85652; 84443; 84484; 84439; 83690; 83970; 80053; 86704; 86317; 84145; 82306; 87389 ×2; 86038 ×2; 86225; 86160 ×2; 86706; 86021; 87522; 86140; 80074; 84165; 74176; 71045; 76770; 94640; 82805; 96375; 99285; U0002; J1644 ×2; J2543; J7606; J7030 ×5; J2405 ×2; G0378 ×3; 81003; 81015

== ENCOUNTER 2020-01-08 15:38 | Emergency (ER) | payer OTHER ==
[2020-01-08 19:25] LABS: Urine Blood NEGATIVE (NEG); Urine Glucose NEGATIVE (NEG); Urine Protein 1+ (NEG); Urine Specific Gravity 1.025 (1.005-1.030); Urine pH 7.5 (5.0-7.0)
[2020-01-08 19:48] LABS: Barbiturates NEGATIVE (NEGATIVE); Benzodiazepines NEGATIVE (NEGATIVE); Cocaine NEGATIVE (NEGATIVE); METHAMPHETAM NEGATIVE (NEGATIVE); Methadone NEGATIVE (NEGATIVE); Opiates NEGATIVE (NEGATIVE); Phencyclidine NEGATIVE (NEGATIVE); THC Cannibis NEGATIVE (NEGATIVE)
[2020-01-08 19:54] LABS: Arterial Blood Carboxyhemoglob 1.5 % (0-1.5); Blood Gas Oxyhemoglobin 92.2 % (94-97); Blood O2 Saturation 94.4 % (92-98.5)
[2020-01-08] MEDS ORDERED: NA CHLORIDE 0.9% 2,000 ML ONE (19:56)
[2020-01-08] MEDS ORDERED: FENTANYL CITR 100 MCG/2 ML ONE (19:56)
[2020-01-08 20:00] LABS: Absolute Lymphocytes (CBC) 1.1 K/uL (0.7-4.9); Basophils % 0.2 % (0-1.3); Hematocrit 41.4 % (39.6-49.0); Lymphocytes % 6.6 % (15.3-44.8); MPV 8.4 fL (7.6-11.3); RBC Red Blood Cell Count 4.61 M/uL (4.33-5.43)
[2020-01-08 20:12] LABS: Albumin 4.1 g/dL (3.4-5.0); Bilirubin Direct 0.1 mg/dL (0-0.2); Bilirubin Total 0.6 mg/dL (0.2-1.0); Potassium 3.9 mmol/L (3.5-5.1); Protein, Total 7.7 g/dL (6.4-8.2)
[2020-01-08 21:16] LABS: Blood Morphology Comment NOT SEEN (NOT SEEN); Platelet Estimate ADEQ
[2020-01-08] MEDS ORDERED: NA CHLORIDE 0.9% 1,000 ML ONE (23:05)
--- NOTE | 2020-01-08 23:31 | ER ---
Nurse's Notes [facility] Name: Artem Robertson Jr Age: 34 yrs Sex: Male : 1985 Arrival Date: 01/08/2020 Time: 15:39 Bed 23 Private MD: Diagnosis: Rhabdomyolysis;Dehydration Presentation: 01/07 16:22 Chief complaint: Patient states: Discharged from upstairs this morning and reports jl7 continued N/V, sharp lower abdominal pain, sore throat and sore chest. Coronavirus screen: Proceed with normal triage. Patient denies a cough. Patient denies shortness of breath or difficulty breathing. Patient denies measured and/or subjective temperature greater than 100.4F prior to today's visit. Patient denies travel on a cruise ship or to a country the [facility] currently lists as an affected area. Patient denies contact with known and/or suspected case of COVID-19. Ebola Screen: No symptoms or risks identified at this time. Initial Sepsis Screen: Does the patient meet any 2 criteria? No. Patient's initial sepsis screen is negative. Does the patient have a suspected source of infection? No. Patient's initial sepsis screen is negative. Risk Assessment: Do you want to hurt yourself or someone else? Patient reports no desire to harm self or others. Onset of symptoms was January 05, 2020. Care prior to arrival: None. 16:22 Method Of Arrival: Ambulatory [facility] 16:22 Acuity: RED 3 jl7 Triage Assessment: 19:01 General: Appears in no apparent distress. unkempt, Behavior is calm, cooperative. Pain: ls4 Complains of pain in abdomen, right leg and left leg Pain currently is 7 out of 10 on a pain scale. 19:01 Respiratory: Denies cough, shortness of breath labored breathing. GI: Bowel sounds ls4 present X 4 quads. Reports upper abdominal pain, cramping. Historical: - Allergies: 16:26 No Known Allergies; jl7 - Home Meds: 16:26 None [Active]; jl7 - PMHx: 16:26 None; jl7 - PSHx: 16:26 None; jl7 - Immunization history:: Adult Immunizations up to date. - Social history:: Smoking status: Patient reports the use of cigarette tobacco products, smokes one pack cigarettes per day. Screenin:05 Abuse screen: Denies threats or abuse. Denies injuries from another. Nutritional ls4 screening: No deficits noted. Tuberculosis screening: No symptoms or risk factors identified. Fall Risk None identified. Assessment: 18:33 Reassessment: Patient appears in no apparent distress at this time. Patient is alert, ls4 oriented x 3, equal unlabored respirations, skin warm/dry/pink. PT RETRIEVED FROM WAITING ROOM AND IN NAD. HAD TWO EMPTY WATER BOTTLES THAT HE NEEDED THROWN AWAY BEFORE BEING BROUGHT BACK. PT AMBULATES QUICKLY WITH NO GRIMACING, NO DIFFICULTY SPEAKING. PT HAS AN EMPTY EMESIS BAG THAT HE RECEIVED UPON REGISTERING. 18:38 Reassessment: PT REQUESTING ICE WATER. PRACTITIONER NOTIFIED. ls4 20:37 Reassessment: Patient appears in no apparent distress at this time. Patient is alert, ls4 oriented x 3, equal unlabored respirations, skin warm/dry/pink. GI: Abdomen is non-distended, Bowel sounds present X 4 quads. Reports upper abdominal pain. Vital Signs: 16:22 BP 144 / 92; Pulse 62; Resp 19; Temp 96.9; Pulse Ox 100% ; Weight 70.76 kg; Height 6 jl7 ft. 1 in. (185.42 cm); Pain 10/10; 20:01 BP 117 / 75; Pulse 69; Resp 18; Temp 97.7; Pulse Ox 100% on R/A; Pain 7/10; ls4 21:00 BP 118 / 70; Pulse 64; Resp 16; Pulse Ox 99% on R/A; Pain 3/10; ls4 22:20 BP 110 / 69; Pulse 68; Resp 19; Pulse Ox 99% on R/A; Pain 3/10; ls4 23:23 BP 114 / 68; Pulse 68; Resp 16; Pulse Ox 98% on R/A; Pain 3/10; ls4 16:22 Body Mass Index 20.58 (70.76 kg, 185.42 cm) jl7 ED Course: 15:39 Patient arrived in ED. ag5 16:25 Triage completed. jl7 16:26 Arm band placed on right wrist. Patient placed in waiting room, Patient notified of jl7 wait time. 18:26 Vannessa Myles FNP-C is [facility]. snw 18:26 Wallace Bullock MD is Attending Physician. snw 18:30 Patient has correct armband on for positive identification. Placed in gown. Bed in low ls4 position. Call light in reach. Side rails up X 1. front desk monitor on. Pulse ox on. NIBP on. 18:30 Warm blanket given. Verbal reassurance given. ls4 18:32 Lolly Guerra RN is Primary Nurse. ls4 18:59 No provider procedures requiring assistance completed. Initial lab(s) drawn, by me, ls4 sent to lab. Urine collected: clean catch specimen, clear. Inserted saline lock: 18 gauge in left antecubital area, using aseptic technique. Blood collected. 18:59 Patient maintains SpO2 saturation greater than 95% on room air. ls4 21:00 No apparent distress. ls4 22:00 No apparent distress. Resting quietly. ls4 23:25 No apparent distress. Resting quietly. ls4 01/08 00:02 IV discontinued, intact, bleeding controlled, No redness/swelling at site. Pressure ls4 dressing applied. Administered Medications: 01/07 19:46 Drug: fentaNYL (PF) 25 mcg Route: IVP; Site: left antecubital; ls4 20:37 Follow up: Response: No adverse reaction; Marked relief of symptoms; Pain is decreased ls4 19:48 Drug: NS 0.9% 2000 ml Route: IV; Rate: 1 bolus; Site: left antecubital; ls4 21:52 Follow up: Response: No adverse reaction; IV Status: Completed infusion; IV Intake: ls4 1000ml 23:06 Drug: NS 0.9% 1000 ml Route: IV; Rate: 1 bolus; Site: left antecubital; ls4 23:35 Drug: fentaNYL (PF) 25 mcg Route: IVP; Site: left antecubital; ls4 23:54 Drug: Phenergan 25 mg Route: PO; ls4 Intake: 21:52 IV: 1000ml; Total: 1000ml. ls4 Outcome: 23:30 Discharge ordered by . snw 01/08 00:01 Discharged to home ambulatory, work friend driving him home. ls4 Condition: stable Discharge instructions given to patient, Instructed on discharge instructions, follow up and referral plans. medication usage, safety practices, Demonstrated understanding of instructions, follow-up care, medications, Prescriptions given X 1. 00:02 Patient left the ED. ls4 Signatures: Vannessa Myles, SOLAR PROJECT MANAGER-C SOLAR PROJECT MANAGER-Csnw Della Roper RN RN jl7 Lolly Guerra RN RN ls4 Aury Sands 5
--- NOTE | 2020-01-08 23:31 | EDPHYS ---
Physician Documentation [facility] [place] Name: Artem Robertson Jr Age: 34 yrs Sex: Male : 1985 Arrival Date: 01/08/2020 Time: 15:39 Bed 23 Private MD: ED Physician Wallace Bullock HPI: 01/08 00:02 This 34 yrs old Male presents to ER via Ambulatory with complaints of snw Nausea/Vomiting, Breathing Difficulty. 00:02 The patient presents to the emergency department with nausea, vomiting, abdominal pain, snw muscle cramping. Onset: The symptoms/episode began/occurred suddenly, 2 day(s) ago, and became persistent. Possible causes: [place], pt was recently (today) released from the hospital s/p rhabdomyolysis with levar. Pt was doing very well, labs improved remarkably. Pt wanted to go home. Otis good. Pt states he suddenly started vomiting again and had a return of severe muscle cramping. The symptoms are aggravated by movement, food , The symptoms are alleviated by nothing. Associated signs and symptoms: Pertinent positives: abdominal pain, nausea, vomiting, muscle cramps. Severity of symptoms: At their worst the symptoms were moderate severe. The patient has experienced a previous episode, yesterday. The patient has been recently seen by a physician: The patient has been recently seen at the [facility] Emergency Department, The patient has been recently been admitted at [facility], was discharged earlier today, for similar complaints, but despite evaluation and treatment the patient has continued symptoms. Historical: - Allergies: 01/07 16:26 No Known Allergies; jl7 - Home Meds: 16:26 None [Active]; jl7 - PMHx: 16:26 None; jl7 - PSHx: 16:26 None; jl7 - Immunization history:: Adult Immunizations up to date. - Social history:: Smoking status: Patient reports the use of cigarette tobacco products, smokes one pack cigarettes per day. ROS: 01/08 00:00 Constitutional: Negative for fever, chills, and weight loss, Eyes: Negative for injury, snw pain, redness, and discharge, ENT: Negative for injury, pain, and discharge, Neck: Negative for injury, pain, and swelling, Cardiovascular: Negative for chest pain, palpitations, and edema, Respiratory: Negative for shortness of breath, cough, wheezing, and pleuritic chest pain. Back: Negative for injury and pain, : Negative for injury, bleeding, discharge, and swelling. Skin: Negative for injury, rash, and discoloration, Neuro: Negative for headache, weakness, numbness, tingling, and seizure, Psych: Negative for depression, anxiety, suicide ideation, homicidal ideation, and hallucinations. Abdomen/GI: Positive for abdominal pain, nausea and vomiting. MS/extremity: Positive for cramping. Exam: 01/07 23:59 Constitutional: This is a well developed, well nourished patient who is awake, alert, snw and in no acute distress. Head/Face: Normocephalic, atraumatic. Eyes: Pupils equal round and reactive to light, extra-ocular motions intact. Lids and lashes normal. Conjunctiva and sclera are non-icteric and not injected. Cornea within normal limits. Periorbital areas with no swelling, redness, or edema. ENT: Nares patent. No nasal discharge, no septal abnormalities noted. Tympanic membranes are normal and external auditory canals are clear. Oropharynx with no redness, swelling, or masses, exudates, or evidence of obstruction, uvula midline. Mucous membranes moist. Neck: Trachea midline, no thyromegaly or masses palpated, and no cervical lymphadenopathy. Supple, full range of motion without nuchal rigidity, or vertebral point tenderness. No Meningismus. Chest/axilla: Normal chest wall appearance and motion. Nontender with no deformity. No lesions are appreciated. Cardiovascular: Regular rate and rhythm with a normal S1 and S2. No gallops, murmurs, or rubs. Normal PMI, no JVD. No pulse deficits. Respiratory: Lungs have equal breath sounds bilaterally, clear to auscultation and percussion. No rales, rhonchi or wheezes noted. No increased work of breathing, no retractions or nasal flaring. Abdomen/GI: Soft, non-tender, with normal bowel sounds. No distension or tympany. No guarding or rebound. No evidence of tenderness throughout. Back: No spinal tenderness. No costovertebral tenderness. Full range of motion. Skin: Warm, dry with normal turgor. Normal color with no rashes, no lesions, and no evidence of cellulitis. Neuro: Awake and alert, GCS 15, oriented to person, place, time, and situation. Cranial nerves II-XII grossly intact. Motor strength 5/5 in all extremities. Sensory grossly intact. Cerebellar exam normal. Normal gait. Psych: Awake, alert, with orientation to person, place and time. Behavior, mood, and affect are within normal limits. Musculoskeletal/extremity: Extremities: grossly normal except: cramping, Circulation is intact in all extremities. Sensation intact. Vital Signs: 16:22 BP 144 / 92; Pulse 62; Resp 19; Temp 96.9; Pulse Ox 100% ; Weight 70.76 kg; Height 6 jl7 ft. 1 in. (185.42 cm); Pain 10/10; 20:01 BP 117 / 75; Pulse 69; Resp 18; Temp 97.7; Pulse Ox 100% on R/A; Pain 7/10; ls4 21:00 BP 118 / 70; Pulse 64; Resp 16; Pulse Ox 99% on R/A; Pain 3/10; ls4 22:20 BP 110 / 69; Pulse 68; Resp 19; Pulse Ox 99% on R/A; Pain 3/10; ls4 23:23 BP 114 / 68; Pulse 68; Resp 16; Pulse Ox 98% on R/A; Pain 3/10; ls4 16:22 Body Mass Index 20.58 (70.76 kg, 185.42 cm) jl7 MDM: 18:49 Patient medically screened. snw 01/08 00:00 Data reviewed: vital signs, nurses notes, lab test result(s). Data interpreted: Pulse snw oximetry: on room air is 98 %. Counseling: I had a detailed discussion with the patient and/or guardian regarding: the historical points, exam findings, and any diagnostic results supporting the discharge/admit diagnosis, lab results, the need for outpatient follow up, for definitive care, to return to the emergency department if symptoms worsen or persist or if there are any questions or concerns that arise at home. Response to treatment: the patient's symptoms have markedly improved after treatment. Special discussion: Based on the patient's Hx, exam, and Dx evaluation, there is no indication for emergent surgery or inpatient Tx. It is understood by the patient/guardian that if the Sx's persist or worsen they need to return immediately for re-evaluation. Based on the history and exam findings, there is no indication for further emergent testing or inpatient evaluation. I discussed with the patient/guardian the need to see the primary care provider for further evaluation of the symptoms. 01/07 19:04 Order name: Basic Metabolic Panel; Complete Time: 20:21 snw 01/07 19:04 Order name: CBC with Diff; Complete Time: 21:17 snw 01/07 19:04 Order name: Hepatic Function; Complete Time: 20:21 snw 01/07 19:04 Order name: Lipase; Complete Time: 20:21 snw 01/07 19:05 Order name: Urine Dipstick--Ancillary (enter results); Complete Time: 19:26 tt3 01/07 19:05 Order name: ABG snw 01/07 19:25 Order name: CPK; Complete Time: 20:33 snw 01/07 19:26 Order name: UDS; Complete Time: 19:53 snw 01/07 20:20 Order name: Manual Differential; Complete Time: 21:17 EDMS 01/07 19:04 Order name: IV Saline Lock; Complete Time: 19:43 snw 01/07 19:04 Order name: Labs collected and sent; Complete Time: 19:43 snw 01/07 19:05 Order name: Recheck VS; Complete Time: 19:43 snw Administered Medications: 01/07 19:46 Drug: fentaNYL (PF) 25 mcg Route: IVP; Site: left antecubital; ls4 20:37 Follow up: Response: No adverse reaction; Marked relief of symptoms; Pain is decreased ls4 19:48 Drug: NS 0.9% 2000 ml Route: IV; Rate: 1 bolus; Site: left antecubital; ls4 21:52 Follow up: Response: No adverse reaction; IV Status: Completed infusion; IV Intake: ls4 1000ml 23:06 Drug: NS 0.9% 1000 ml Route: IV; Rate: 1 bolus; Site: left antecubital; ls4 23:35 Drug: fentaNYL (PF) 25 mcg Route: IVP; Site: left antecubital; ls4 23:54 Drug: Phenergan 25 mg Route: PO; ls4 Disposition: 01/08 08:43 Co-signature as Attending Physician, Wallace Bullock MD I agree with the assessment and kdr plan of care. Disposition: 01/08/20 23:30 Discharged to Home. Impression: Rhabdomyolysis, Dehydration. - Condition is Stable. - Discharge Instructions: Dehydration, Adult, Rhabdomyolysis, Rehydration, Adult. - Prescriptions for promethazine 25 mg Oral Tablet - take 1 tablet by ORAL route every 6 hours As needed; 20 tablet. - Work release form, Medication Reconciliation Form, Thank You Letter, Antibiotic Education, Prescription Opioid Use form. - Follow up: Emergency Department; When: As needed; Reason: Worsening of condition. Follow up: Private Physician; When: 2 - 3 days; Reason: Recheck today's complaints, Continuance of care, Re-evaluation by your physician. - Problem is an acute exacerbation. - Symptoms have improved. Signatures: Dispatcher [employer] EDMS Wallace Bullock MD MD [facility] Vannessa Myles, [employer] HE[employer]IST-[facility] [employer]-[facility] Della Roper RN RN jl7 Lolly Guerra RN RN ls4 Corrections: (The following items were deleted from the chart) 00:02 01/07 23:30 01/08/2020 23:30 Discharged to Home. Impression: Rhabdomyolysis; ls4 Dehydration. Condition is Stable. Forms are Medication Reconciliation Form, Thank You Letter, Antibiotic Education, Prescription Opioid Use. Follow up: Emergency Department; When: As needed; Reason: Worsening of condition. Follow up: Private Physician; When: 2 - 3 days; Reason: Recheck today's complaints, Continuance of care, Re-evaluation by your physician. Problem is an acute exacerbation. Symptoms have improved. snw
[2020-01-08] MEDS ORDERED: PROMETHAZINE 25 MG TABLET ONE (23:49)
[2020-01-09 00:20] VITALS: TEMP 97.7
[2020-01-09 00:24] VITALS: BP 114/68; O2SAT 98
== END 2020-01-09 00:02 | disposition home or self-care (01) ==
LOC: ER 15:38
DX: E86.0 Dehydration (principal); M62.82 Rhabdomyolysis; F17.210 Nicotine dependence, cigarettes, uncomplicated
CPT/HCPCS: 96361; 85025; 80048; 36415; 82550; 80076; 80307 ×8; 81003; 83690; 82805; 96374; 99285; Q0169; J3010; J7030 ×2